=== PATIENT | male | born 1975 | race Caucasian/White ===

== ENCOUNTER 2021-05-16 12:45 | Emergency (ER) | payer OTHER ==
[~2021-05-16] VITALS: Ht 170.2 cm; Wt 75.0 kg
[2021-05-16 13:07] VITALS: BP 112/69
[2021-05-16] MEDS ORDERED: ALBUTEROL SULFATE 2.5 MG/3 ML NEBU. NEB ONE (13:30)
[2021-05-16] MEDS ORDERED: BENZONATATE 100 MG CAPSULE. PO ONE (13:30)
--- NOTE | 2021-05-16 13:31 | RAD ---
EXAM: Chest, 2 views. HISTORY: Cough and congestion. COMPARISON: None. FINDINGS: 2 views of the chest are obtained. There is no infiltrate, pleural effusion or pneumothorax . The heart is normal in size. IMPRESSION: No acute pulmonary finding. Electronically signed by: Penelope Singh MD (05/16/2021 1:28 PM) [id number]
[2021-05-16] MEDS ORDERED: BENZ100C PO (14:10)
[2021-05-16] MEDS ORDERED: AZIT250T6 PO (14:10)
--- NOTE | 2021-05-16 14:10 | PHYS DOC ---
Past History Past Medical History: No Pertinent History (EDD SNOW APRN) Past Surgical History: No Surgical History (EDD SNOW APRN) Alcohol Use: Occasionally (EDD SNOW APRN) Adult General Chief Complaint Chief Complaint: COUGH HPI HPI Patient is a 46-year-old male presents emergency department with chief complaint of a dry cough for the past 2 weeks. Patient states that he does at times bringing up a small amount of yellow sputum. Denies seeing any blood in the sputum. Patient states that he is in the [employer] and is currently here at the [facility] [employer] for training, states he is from [facility], states he will be here until next Friday before he returns. Patient denies allergies to medicines. Patient reports intermittent shortness of breath, denies chest pain, denies nasal congestion. Patient states he lives at home with his daughter age 5 and son age 8. Patient states his son is currently being treated for a sinus infection with antibiotics and is having symptoms similar to his. Patient states he tried taking Claritin intermittently over the past 2 weeks which helped some. Patient denies taking any prescription medications. Denies any surgical history. Patient does complain of a sore throat. Denies ear pain, headaches, dizziness, fevers or chills, syncopal or near syncopal episodes, denies nausea, vomiting, or diarrhea. Denies rashes of the skin. Patient denies any other physical complaints or physical concerns. Patient states he has had his full 2 doses of COVID-19 vaccinations a few months ago. Patient states his immunizations are up-to-date. (EDD SNOW APRN) Review of Systems Review of Systems 14 body systems of review of systems have been reviewed. See HPI for pertinent positives and negative responses, otherwise all other systems are negative, nonpertinent or noncontributory. (EDD SNOW APRN) Current Medications Current Medications Current Medications Medications (Trade) Dose Ordered Sig/Emily Start Time Stop Time Status Last Admin Dose Admin Albuterol Sulfate (Ventolin) 2.5 mg 1X ONCE 05/16/21 13:30 05/16/21 13:31 DC 05/16/21 13:48 2.5 MG Benzonatate (Tessalon Perle) 100 mg 1X ONCE 6/30/21 13:30 05/16/21 13:31 DC 05/16/21 13:36 100 MG (EDD SNOW APRN) Allergies Allergies Allergies Coded Allergies Type Severity Reaction Last Updated Verified No Known Drug Allergies 05/16/21 No (EDD SNOW APRN) Physical Exam Physical Exam Constitutional: Well developed, well nourished, no acute distress, non-toxic appearance. 46-year-old male in no apparent distress. HENT: Normocephalic, atraumatic, bilateral external ears normal, oropharynx moist, no oral exudates, nose normal. Bilateral TMs within normal limits. Oropharynx erythematous, no uvular edema, bilateral tonsillar erythema without exudative drainage appreciated, no peritonsillar abscess noted, no laryngeal edema appreciated, no drooling, no trismus, patient speaking in normal voice tones, no postnasal drip appreciated. Eyes: Conjunctiva normal, no discharge. Neck: Normal range of motion, no tenderness, supple, no stridor. No meningismus signs, no nuchal rigidity. Cardiovascular:Heart rate regular rhythm, no murmur, heart sounds S1-S2 to auscultation. Lungs & Thorax: Bilateral breath sounds clear to auscultation except for right upper lobe light expiratory wheeze per auscultation. Abdomen: Bowel sounds normal, soft, no tenderness, no masses, no pulsatile masses. Skin: Warm, dry, no erythema, no rash. Back: No tenderness, no CVA tenderness. Extremities: No tenderness, no cyanosis, no clubbing, ROM intact, no edema. Neurologic: Alert and oriented X 3, normal motor function, normal sensory function, no focal deficits noted. Psychologic: Affect normal, judgement normal, mood normal. (EDD SNOW APRN) Current Patient Data Vital Signs Vital Signs Date Time Temp Pulse Resp B/P (MAP) Pulse Ox O2 Delivery O2 Flow Rate FiO2 05/16/21 13:49 Room Air 05/16/21 13:07 97.8 63 21 112/69 (83) 97 (EDD SNOW APRN) EKG EKG [] (EDD SNOW APRN) Radiology/Procedures Radiology/Procedures PATIENT: LEONOR TAYLOR ACCOUNT: [id number] : 1975 LOCATION: ER AGE: 46 SEX: M EXAM STATUS: REG ER ORD. PHYSICIAN: EDD SNOW APRN REASON: COUGH. CHEST CONGESTIN. WHEEZING. SORE THROAT PROCEDURE: CHEST PA & LATERAL EXAM: Chest, 2 views. HISTORY: Cough and congestion. COMPARISON: None. FINDINGS: 2 views of the chest are obtained. There is no infiltrate, pleural effusion or pneumothorax. The heart is normal in size. IMPRESSION: No acute pulmonary finding. Electronically signed by: Penelope Spring MD (05/16/2021 1:28 PM) [id number] DICTATED AND SIGNED BY: PENELOPE SPRING MD DATE: 05/16/21 1328 CC: EDD SNOW APRN; EMERGENCY,DEPARTMENT; PCP,NO ~MTH0 0 (EDD SNOW APRN) Heart Score C/O Chest Pain: No Risk Factors: Risk Factors: DM, Current or recent (<one month) smoker, HTN, HLP, family history of CAD, obesity. Risk Scores: Risk Factors: DM, Current or recent (<one month) smoker, HTN, HLP, family history of CAD, obesity. (EDD SNOW APRN) Course & Med Decision Making Course & Med Decision Making Pertinent Labs and Imaging studies reviewed. (See chart for details) 46-year-old male, vital signs reviewed, presents emergency department chief concerns of a nagging cough for the past 2 weeks. Physical examination concerning for possible strep throat, will order chest x-ray to rule out pulmonary process, will order albuterol nebulizer treatment related to right upper lobe expiratory wheeze. Will give Tessalon Perles for cough. Rapid strep test negative. Upon reevaluation of the patient, patient states that the Tessalon Perles seem to help, he also states the albuterol treatment seem to help him breathe better. Discussed with patient cough and congestion most likely viral in nature however with his reported history of son being treated for sinus infection with antibiotics, and 2-week history of cough without relief, will start on antibiotic azithromycin. Encourage patient to continue taking Claritin or Zyrtec over the counter, encourage patient to obtain Robitussin-DM and increase fluids for symptoms, and discussed with patient viral URI with cough sometimes last up to 5 weeks. Encouraged patient to follow-up with his primary physician at the [facility] clinic when he returns to [place] in [place] this next week. Will prescribe Christineon Anika for cough. Patient gave verbal understanding of discharge home instructions, follow-up with PCP next week, return to ER precautions and concerns, [id number] medication and prescription medication use, patient was thankful and had no further questions, patient was discharged home without incident. (EDD SNOW APRN) Dragon Disclaimer Dragon Disclaimer This electronic medical record was generated, in whole or in part, using a voice recognition dictation system. (EDD SNOW APRN) Departure Departure: Impression: Primary Impression: Bronchitis Disposition: HOME / SELF CARE / HOMELESS Condition: GOOD Referrals: PCP,NO (PCP) Patient Instructions: Acute Bronchitis Additional Instructions: You were seen today in the emergency department for a cough for the past 2 weeks with sore throat. A rapid strep test was done today and did not show any indication of a strep infection. A chest x-ray was performed and there were no signs of a pneumonia. You were treated today in the emergency department with a cough medicine called Immanuel Camarena and were given a albuterol treatment during your ER stay. With your reported history of son having a sinus infection and currently on antibiotics, I will prescribe an antibiotic for you to take as directed. We discussed using a allergy medication such as Claritin or Zyrtec, please increase your fluid intake, please obtain [id number] Robitussin-DM for chest congestion and symptoms. Your bronchitis type infection may last up to 5 weeks. Please return to the emergency department for increased shortness of breath, chest pains, or other concerns. Please follow-up with your primary care doctor for reevaluation sometime this week. EMERGENCY DEPARTMENT GENERAL DISCHARGE INSTRUCTIONS Thank you for coming to [facility] (ED) today and trusting us with you care. We trust that you had a positivie experience in our Emergency Department. If you wish to speak to the department management, you may call the director at [phone]. YOUR FOLLOW UP INSTRUCTIONS ARE FOLLOWS: 1. Do you have a private Doctor? If you do not have a private doctor, please ask for a resource list of physicians or clinics that may be able to assist you with follow up care. 2. The Emergency Physician has interpreted your x-rays. The X-Ray specialist will also review them. If there is a change in the findings, you will be notified in 48 hours when at all possible. 3. A lab test or culture has been done, your results will be reviewed and you will be notified if you need a change in treatment. ADDITIONAL INSTRUCTIONS AND INFORMATION: 1. Your care today has been supervised by a physician who is specially trained in emergency care. Many problems require more than one evaluation for a complete diagnosis and treatment. We recommend that you schedule your follow up appointment as recommended to ensure complete treatment of you illness or injury. If you are unable to obtain follow up care and continue to have a problem, or if your condition worsens, we recommend that you return to the ED. 2. We are not able to safely determine your condition over the phone nor are we able to give sound medical advice over the phone. For these safety reasons, if you call for medical advice we will ask you to come to the ED for further evaluation. 3. If you have any questions regarding these discharge instructions please call the ED at [phone]. SAFETY INFORMATION: In the interest of safety, wellness, and injury prevention; we encourage you to wear your sealbelt, if you smoke; quite smoking, and we encourage family to use a protective helmet for bicycling and other sporting events that present an increased risk for head injury. IF YOUR SYMPTOMS WORSEN OR NEW SYMPTOMS DEVELOP, OR YOU HAVE CONCERNS ABOUT YOUR CONDITION; OR IF YOUR CONDITION WORSENS WHILE YOU ARE WAITING FOR YOUR FOLLOW UP AP POINTMENT; EITHER CONTACT YOUR PRIMARY CARE DOCTOR, THE PHYSICIAN WHOSE NAME AND NUMBER YOU WERE GIVEN, OR RETURN TO THE ED IMMEDIATELY. Scripts Azithromycin (AZITHROMYCIN TABLET) 250 Mg Tablet 1 PKG PO UD for respiratory infection for 5 Days, #6 TAB 0 Refills 2 the first day followed by 1 for days 2-5 Prov: EDD SNOW SUB MASTER 05/16/21 Benzonatate (TESSALON PERLE) 100 Mg Capsule 1 CAP PO TID for cough, #10 CAP 0 Refills Prov: EDD SNOW SUB MASTER 05/16/21 Attending Signature Attending Signature I have reviewed the PA/CHIEF SCIENTIST's note and plan of care. I was available for consultation as needed during the patient's visit in the emergency department. I agree with the clinical impression, plan, and disposition. (EDD THOMAS DO) EDD SNOW APRN May 16, 2021 14:10 EDD THOMAS DO May 16, 2021 18:29
== END 2021-05-16 14:31 | disposition home or self-care (01) ==
LOC: ER 12:45
DX: J40 Bronchitis, not specified as acute or chronic (principal)
CPT/HCPCS: 71046; 87070; 87880; 94640; 99284; J7613